=== PATIENT | female | born 1960 | race Caucasian/White ===

== ENCOUNTER 2016-05-11 12:37 | Inpatient (IN) | payer OTHER ==
[~2016-05-11] VITALS: Ht 149.9 cm; Wt 53.8 kg
[~2016-05-11 12:37] MED LIST: BENA20TA65 PO; DEXT15DR2 LEFT EYE; TYL500 PO
--- NOTE | 2016-05-11 14:58 | ERA ---
ER Documentation Chief Complaint Date/Time DATE: 05/11/16 TIME: 14:57 Chief Complaint Chest pain HPI The patient is a 55-year-old female, presenting to the ER because of intermittent left-sided chest pain radiating down to her left arm for the last 2 weeks, 10/11, worse with movement, denies similar symptoms previously. The pain is worse last night. She denies fever, chills, cough, neck pain, chest pain with exertion or vomiting or diaphoresis. He denies abdominal pain, vomiting, dysuria, diarrhea. She has not been taking her antihypertensive medication for more than 3 months. She does not smoke or drink Past medical history: Hypertension, gastritis Past surgical history: None ROS All systems reviewed and are negative except as per history of present illness. Medications Home Meds Discontinued Scripts Dextran/Hypromellose/Glycerin (Artificial Tears Drops) 15 Ml Drops, 2 DROP LEFT EYE Q6 for 10 Days, EA Prov:BRIGETTE RAMIREZ MD 12/02/14 Acetaminophen* (Tylenol*) 500 Mg Tab, 500 MG PO Q4H Y for PAIN, #20 TAB Prov:BRIGETTE RAMIREZ MD 12/02/14 Benazepril Hcl* (Lotensin*) 20 Mg Tablet, 20 MG PO DAILY, #30 TAB Prov:BRIGETTE RAMIREZ MD 12/02/14 Allergies Allergies: Coded Allergies: No Known Allergy (Unverified , 05/11/16) PMhx/Soc History of Surgery: No Anesthesia Reaction: No Hx Neurological Disorder: No Hx Respiratory Disorders: No Hx Cardiac Disorders: Yes (HTN) Hx Psychiatric Problems: No Hx Miscellaneous Medical Probl: No Hx Alcohol Use: No Hx Substance Use: No Hx Tobacco Use: No Physical Exam Vitals Vital Signs Date Time Temp Pulse Resp B/P Pulse Ox O2 Delivery O2 Flow Rate FiO2 05/11/16 18:27 98.1 57 16 129/83 100 Room Air 05/11/16 17:00 59 16 128/74 100 05/11/16 15:00 98.1 71 20 147/93 100 05/11/16 12:43 98.6 69 20 160/84 100 Physical Exam Const: No acute distress. Head: Atraumatic. Eyes: Normal Conjunctiva. ENT: Normal External Ears, Nose and Mouth. Neck: Full range of motion. No meningismus. Resp: Clear to auscultation bilaterally. Cardio: Regular rate and rhythm, no murmurs. Abd: Soft, non distended, normal bowel sounds, non tender. Skin: No petechiae or rashes. Back: No midline or flank tenderness. Ext: No cyanosis, or edema. Neur: Awake and alert. No focal deficit Psych: Normal Mood and Affect. Result Diagram: 05/11/16 1540 05/11/16 1540 Results 24 hrs Laboratory Tests Test 05/11/16 15:40 05/11/16 16:40 Activated Partial Thromboplast Time 30.7Sec Alanine Aminotransferase (ALT/SGPT) 36IU/L Albumin 4.3g/dl Albumin/Globulin Ratio 1.26 Alkaline Phosphatase 93IU/L Anion Gap 16 Aspartate Amino Transf (AST/SGOT) 36IU/L Basophils # 0.010^3/ul Basophils % 0.4% Blood Urea Nitrogen 13mg/dl Calcium Level 9.4mg/dl Carbon Dioxide Level 29mmol/L Chloride Level 101mmol/L Creatinine 0.69mg/dl Direct Bilirubin 0.00mg/dl Eosinophils # 0.010^3/ul Eosinophils % 0.5% Globulin 3.40g/dl Glucose Level 112mg/dl Hematocrit 41.2% Hemoglobin 13.8g/dl INR International Normalized Ratio 0.98 Indirect Bilirubin 0.4mg/dl Lipase 94U/L Lymphocytes # 1.910^3/ul Lymphocytes % 34.3% Mean Corpuscular Hemoglobin 29.1pg Mean Corpuscular Hemoglobin Concent 33.5g/dl Mean Corpuscular Volume 86.9fl Mean Platelet Volume 9.6fl Monocytes # 0.410^3/ul Monocytes % 6.7% Neutrophils # 3.210^3/ul Neutrophils % 58.1% Nucleated Red Blood Cells # 0.010^3/ul Nucleated Red Blood Cells % 0.0/100WBC Platelet Count 32981^3/UL Potassium Level 3.7mmol/L Prothrombin Time 13.0Sec Prothrombin Time Ratio 1.0 Red Blood Count 4.7410^6/ul Red Cell Distribution Width 14.1% Sodium Level 142mmol/L Total Bilirubin 0.4mg/dl Total Protein 7.7g/dl Troponin I < 0.012ng/ml White Blood Count 5.510^3/ul Urine Bilirubin NEGATIVE Urine Clarity CLEAR Urine Color LT. YELLOW Urine Glucose NEGATIVE% Urine Hemoglobin TRACE Urine Ketones NEGATIVE Urine Leukocyte Esterase NEGATIVE Urine Microscopic RBC 0-2/HPF Urine Microscopic WBC 0-2/HPF Urine Nitrite NEGATIVE Urine Specific [place] <=1.005 Urine Squamous Epithelial Cells FEW Urine Total Protein NEGATIVE Urine Urobilinogen 0.2 E.U./dL Urine pH 7.0 Current Medications Medications (Trade) Dose Ordered Sig/Caitlin Route PRN Reason Start Time Stop Time Status Last Admin Dose Admin Ketorolac Tromethamine (Toradol) 30 mg ONCE STAT IV 05/11/16 15:05 05/11/16 15:07 DC 05/11/16 15:25 Aspirin (Aspirin) 325 mg ONCE ONCE PO 05/11/16 17:30 05/11/16 17:31 DC 05/11/16 17:28 Nitroglycerin (Nitroglycerin 2% Oint) 1 inch ONCE ONCE TD 05/11/16 17:30 05/11/16 17:31 DC 05/11/16 17:29 Procedures/[place] [id number] Radiology Main Line: [phone] DIAGNOSTIC IMAGING REPORT Patient: POP DUDLEY : 1960 Age: 55 Sex: F MR #: [id number] DOS: 05/11/16 1505 Ordering MD: TYSON MAR MD Location: E/R Room/Bed: PROCEDURE: XR Chest. CLINICAL INDICATION: Abdominal pain. TECHNIQUE: Single frontal view of the chest was obtained COMPARISON: No. FINDINGS: The soft tissues are normal. The bony elements are normal. The heart, left side aorta, cardiomediastinal silhouette, pulmonary vasculature and hilar structures are normal. The lungs are clear. The costophrenic angles are normal. Monitoring electrodes are draped across the chest. The right diaphragm is elevated. IMPRESSION: 1. No evidence of active cardiopulmonary disease. 2. No evidence of pneumoperitoneum. 3. Elevation of the right diaphragm. RPTAT:AAJJ Physician Kevin Date Time Electronically viewed and signed by Javier Mccloud Physician on 05/11/2016 15:24 JM/ CC: TYSON MAR MD EKG: Read by emergency physician Rate/Rhythm: Normal Sinus Rhythm 62 beats per min QRS, ST, T-waves: No ST elevation, no T wave inversion, shortened OK interval Impression: Abnormal EKG MEDICAL MAKING DECISION: The patient is a 55-year-old female, presenting with acute chest pain, concerning for ACS. She was treated with aspirin 325 mg p.o. , 1 inch of nitroglycerin ointment and Toradol 30 mg IV for pain with good response. The differential diagnoses considered include but are not limited to acute coronary syndrome, acute myocardial infarction, pericarditis, pulmonary embolism, aortic dissection, pneumonia, pleural effusion, pneumothorax, GERD, chest wall pain. Departure Diagnosis: Primary Impression: Chest pain Condition: Stable Comments I discussed the findings with the patient. I discussed the patient with his physician Dr. Camejo who was made aware of the lab, the treatment, the patient condition. The patient is admitted to telemetry TYSON MAR MD May 11, 2016 14:58
[2016-05-11] MEDS ORDERED: KETOROLAC 30 MG INJ IV STA (15:05)
--- NOTE | 2016-05-11 15:25 | RADRPT ---
PROCEDURE: XR Chest. CLINICAL INDICATION: Abdominal pain. TECHNIQUE: Single frontal view of the chest was obtained COMPARISON: No. FINDINGS: The soft tissues are normal. The bony elements are normal. The heart, left side aorta, cardiomedias tinal silhouette, pulmonary vasculature and hilar structures are normal. The lungs are clear. The co stophrenic angles are normal. Monitoring electrodes are draped across the chest. The right diaphrag m is elevated. IMPRESSION: 1. No evidence of active cardiopulmonary disease. 2. No evidence of pneumoperitoneum. 3. Elevation of the right diaphragm. RPTAT:AAJJ Physician Kevin Date Time Electronically viewed and signed by Javier Mccloud Physician on 05/11/2016 15:24 /
[2016-05-11 16:01] LABS: BASOPHILS % 0.4 % (0.0-2.0); EOSINOPHILS % 0.5 % (0.0-7.0); HEMATOCRIT 41.2 % (37.0-47.0); HEMOGLOBIN 13.8 g/dl (12.0-16.0); LYMPHOCYTES # 1.9 10^3/ul (0.8-2.9); LYMPHOCYTES % 34.3 % (15.0-51.0); MEAN CORPUSCULAR HEMOGLOBIN 29.1 pg (29.0-33.0); MEAN CORPUSCULAR HGB CONC 33.5 g/dl (32.0-37.0); MEAN CORPUSCULAR VOLUME 86.9 fl (82.0-101.0); MEAN PLATELET VOLUME 9.6 fl (7.4-10.4); MONOCYTE # 0.4 10^3/ul (0.3-0.9); MONOCYTES % 6.7 % (0.0-11.0); NEUTROPHIL # 3.2 10^3/ul (1.6-7.5); NEUTROPHILS % 58.1 % (39.0-77.0); PLATELET COUNT 228 10^3/UL (140-440); RED BLOOD COUNT 4.74 10^6/ul (4.20-5.40); RED CELL DISTRIBUTION WIDTH 14.1 % (11.5-14.5); UNCORRECTED WBC 5.5 10^3/ul (4.8-10.8); WHITE BLOOD COUNT 5.5 10^3/ul (4.8-10.8)
[2016-05-11 16:03] LABS: CONDITION 1
[2016-05-11 16:13] LABS: INR 0.98
[2016-05-11 16:14] LABS: PARTIAL THROMBOPLASTIN TIME 30.7 Sec (25.0-35.0)
[2016-05-11 16:17] LABS: ALBUMIN 4.3 g/dl (3.3-4.9); CHLORIDE 101 mmol/L (97-110)
[2016-05-11 16:18] LABS: POTASSIUM 3.7 mmol/L (3.5-5.1); SODIUM 142 mmol/L (135-144)
[2016-05-11 16:20] LABS: ALBUMIN/GLOBULIN RATIO 1.26; ALKALINE PHOSPHATASE 93 IU/L (42-121); ANION GAP 16 (8-16); ASPARTATE AMINO TRANSFERASE 36 IU/L (15-46); BILIRUBIN,INDIRECT 0.4 mg/dl (0-1.1); BILIRUBIN,TOTAL 0.4 mg/dl (0.2-1.3); BLOOD UREA NITROGEN 13 mg/dl (7-20); CARBON DIOXIDE 29 mmol/L (21-31); CREATININE 0.69 mg/dl (0.44-1.00); TOTAL PROTEIN 7.7 g/dl (6.1-8.1)
[2016-05-11 16:21] LABS: ALANINE AMINOTRANSFERASE 36 IU/L (13-69); CALCIUM 9.4 mg/dl (8.4-10.2); GLUCOSE 112 mg/dl (70-220)
[2016-05-11 16:42] LABS: TROPONIN-I < 0.012 ng/ml (0.00-0.12)
[2016-05-11 16:48] LABS: ADD UMIC YES; URINE BILIRUBIN (Dip) NEGATIVE (NEGATIVE); URINE BLOOD (Dip) TRACE (NEGATIVE); URINE COLOR LT. YELLOW (YELLOW); URINE GLUCOSE (Dip) NEGATIVE (NEGATIVE); URINE KETONES (Dip) NEGATIVE (NEGATIVE); URINE LEUKOCYTE ESTERASE (Dip) NEGATIVE (NEGATIVE); URINE NITRITE (Dip) NEGATIVE (NEGATIVE); URINE TOTAL PROTEIN (Dip) NEGATIVE (NEGATIVE); URINE UROBILINOGEN (Dip) 0.2 E.U./dL (0.1-1.0)
[2016-05-11 17:22] LABS: SQUAMOUS EPITHELIAL CELL,UR FEW; URINE RBCS 0-2 /HPF (0)
[2016-05-11] MEDS ORDERED: ASPIRIN 325 MG TAB PO ONE (17:30)
[2016-05-11] MEDS ORDERED: NITROGLYCERIN 2% 1 GM OINT PKT TD ONE (17:30)
[2016-05-11 21:32] VITALS: TEMP 98.1
[2016-05-11 21:53] VITALS: PULSE 75
[2016-05-11 22:00] VITALS: BP 119/73; PULSE 71; RESP 20; Ht 149.9 cm; Wt 53.8 kg
[2016-05-11] MEDS ORDERED: hydrALAzine 20 MG INJ IV PRN (23:00)
[2016-05-11] MEDS ORDERED: NITROGLYCERIN (SL) 0.4 MG TAB SL PRN (23:00)
[2016-05-11] MEDS ORDERED: ONDANSETRON 4 MG INJ IV PRN (23:00)
[2016-05-11] MEDS ORDERED: ZOLPIDEM 5 MG TAB PO PRN (23:00)
[2016-05-11] MEDS ORDERED: HYDROCODONE/APAP (5/325) TAB PO PRN (23:00)
[2016-05-11] MEDS ORDERED: ACETAMINOPHEN 325 MG TAB PO PRN (23:00)
[2016-05-11] MEDS ORDERED: ENOXAPARIN 40 MG/0.4 ML SYG SC SCH (23:01)
[2016-05-11] MEDS: ASPIRIN 325 MG TAB PO SCH (23:25)
[2016-05-12] VITALS (13 sets, daily range): BP systolic 108–126; BP diastolic 59–82; PULSE 58–83; RESP 16–20
[2016-05-12 08:49] LABS: CHOL/HDL RATIO 2.7 RATIO
[2016-05-12] MEDS: ENOXAPARIN 40 MG/0.4 ML SYG SC SCH (09:00)
[2016-05-12] MEDS: ASPIRIN 325 MG TAB PO SCH (09:19)
[2016-05-12] MEDS ORDERED: ALBUTEROL/IPRATROPIUM (NEB) 3 ML AMP HHN PRN (11:00)
--- NOTE | 2016-05-12 12:14 | HP ---
DATE OF ADMISSION: 05/11/2016 CHIEF COMPLAINT: Chest pain. HISTORY OF PRESENT ILLNESS: The patient is a 55-year-old very pleasant female who presente d to the emergency room for complaints of intermittent left-sided chest pain radiating down to her a rm for the last 2 weeks. The pain gets significantly worse last night and patient came to the emerg ency room. The patient denied any fever, chills, cough. Denies abdominal pain, denies nausea, vomi ting, diarrhea. Denies leg swelling. The patient had a history of hypertension and was taking marissa zepril. In the emergency room, the patient underwent a 12-lead EKG which revealed sinus rhythm with no ST segment elevation or depression noted. The patient also underwent a chest x-ray which reveale d no evidence of active cardiopulmonary disease, no evidence of pneumoperitoneum, elevation of the r ight diaphragm. The patient was given aspirin, nitroglycerin and Toradol with good response and adm itted for further evaluation and management to telemetry floor. PAST MEDICAL HISTORY: Positive for hypertension. Positive for asthma. Patient uses a rescue inhal er p.r.n. The patient also has a history of gastritis was taking Prevacid; however, stopped it per [facility] physician recommendations. The patient also stated that she checked her cholesterol in January 2016, which was within normal limits. Patient goes to [facility] for primary care. PAST SURGICAL HISTORY: Patient denies having any surgeries. FAMILY HISTORY: Patient's father of a heart attack and cardiac problems at the age of 92, had a heart attack at the age of 80. The patient's mother is still alive and has a history of arthritis . SOCIAL HISTORY: Patient lives at home with her family. The patient denies any tobacco use, denies any illicit drug use, denies any alcohol use. ALLERGIES: NO KNOWN ALLERGIES. HOME MEDICATIONS: 1. Benazepril. 2. Rescue inhaler. REVIEW OF SYSTEMS: A 12-point review of systems is negative unless what mentioned in the HPI. PHYSICAL ASSESSMENT: GENERAL: Well-developed, well-nourished female currently is awake, alert, in no acute distress. VITAL SIGNS: Temperature is 97.8, pulse is 66, blood pressure is 126/77, respiratory rate 18, oxyge n saturation 96% on room air. HEENT: Head is atraumatic, normocephalic. Pupils equal, round, reactive to light and accommodation . Oral mucosa is pink and moist. NECK: Supple, no cervical lymphadenopathy, no thyromegaly. CHEST: Lungs clear bilaterally. There is no rhonchi, wheezes, rales noted. CARDIOVASCULAR: Normal S1, S2. No murmurs, gallops, clicks, rubs noted. ABDOMEN: Protuberant, soft, nondistended, nontender. Bowel sounds present. There is no guarding, no rebound tenderness. EXTREMITIES: There is no edema, clubbing, cyanosis. Pulses equal bilaterally 2+. SKIN: There is no rash, petechiae noted. NEUROLOGIC: Patient is awake, alert and oriented x4. No focal deficits noted. Motor strength 5/5 in all extremities. Cranial nerves II through XII are intact. LABORATORY DATA: On admission, CBC: White blood cells 5.5, hemoglobin 13.8, hematocrit 41.2, plate lets 228. Chemistry: Sodium is 142, potassium 3.7, chloride 101, carbon dioxide 29, anion gap 16, BUN 15, creatinine 0.69, glucose 112. AST 36, ALT 36, alkaline phosphatase 93, troponin less than 0 .012. ASSESSMENT AND PLAN: 1. Chest pain, rule out acute coronary syndrome. I am going to continue the patient on aspirin, ob tain cardiac enzymes q.8h. x3. A 2D echocardiogram. Dr. Bullard is asked to see patient in cardiol ogy consultation. Continue nitroglycerin p.r.n. for chest pain. Obtain 12-lead EKG. 2. Hypertension by history. Continue to monitor blood pressure on telemetry floor. 3. History of asthma. I am going to continue DuoNeb p.r.n. for shortness of breath. I will start patient on Protonix for peptic ulcer disease prophylaxis and Lovenox for deep venous thrombosis prop hylaxis. Further recommendations based on clinical course. Plan of care discussed with Dr. Florencia reddy Dictated By: JORGE LUIS VASQUEZ MACHINE APPLICATOR CEMENTER for LOY JUDGE MD, SR/NTS Conf#: [id number] DID#: [id number]
[2016-05-12] MEDS: PANTOPRAZOLE (EC) 40 MG TAB PO SCH ×2 (12:56→18:10)
--- NOTE | 2016-05-12 15:00 | CONS ---
DATE OF ADMISSION: 05/11/2016 DATE OF CONSULTATION: 05/12/2016 REASON FOR CONSULTATION: Chest pain, assess for acute coronary syndrome. REQUESTING PHYSICIAN: Owen Camejo. HISTORY OF PRESENT [id number]: Ms. Cardona is a 55-year-old female with history of hypertension and asthma who presented with 2 to 3 days of increasing substernal chest pain described as a pressure-like sensation. The patient states chest pain has been worse at night when at rest, described without radiation to arm or jaw, or associated shortness of breath. The patient states that the pain lasted throughout the evening on Tuesday. Upon arrival in the emergency department, temperature 98.6, blood pressure 160/84, pulse 69, respirations 20, saturating 100%. Patient's labs were notable for a negative UA , sodium 142, potassium 3.7, creatinine 0.69, BUN 13. Troponin negative. INR 0.98. White blood cell count 5.5, hemoglobin 13.8, platelet count 228. The patient underwent a chest x-ray revealing no evidence of acute cardiopulmonary abnormalities. The patient's electrocardiogram revealed sinus bradycardia, rate of 54, normal axis, normal intervals, with isolated T-wave flattening in lateral leads 1 and L. Patient at this time denies ongoing chest pain. PAST MEDICAL HISTORY: As above in HPI. MEDICATIONS CURRENTLY IN THE HOSPITAL: 2. lovenox subQ daily. 3. Aspirin 325 mg daily. 4. Ambien p.r.n. 5. Tylenol p.r.n. 6. Zofran p.r.n. 7. [place] p.r.n. 8. Hydralazine p.r.n. ALLERGIES: NO KNOWN DRUG ALLERGIES. SOCIAL HISTORY: No tobacco, ETOH or illicit drug use. FAMILY HISTORY: No history of sudden cardiac or early CAD. REVIEW OF SYSTEMS: As above in HPI. CONSTITUTIONAL: No fevers, chills. PULMONARY: No shortness of breath. CARDIOVASCULAR: Positive chest pain. GASTROINTESTINAL: No vomiting. GENITOURINARY: No hematuria. MUSCULOSKELETAL: Degenerative joint disease. PSYCHIATRIC: No documented history of psychiatric disorder. NEUROLOGICAL: No documented history of CVA. PHYSICAL EXAMINATION: VITAL SIGNS: Temperature 97.4, blood pressure 122/82, pulse 74, saturating 97%. GENERAL: The patient is alert, awake, in no acute distress. NECK: JVP approximately 8 to 9 cm water. CHEST: Fair air movement throughout. HEART: Regular rate and rhythm. Normal S1, S2, I/ systolic murmur, nondisplaced PMI. ABDOMEN: Positive bowel sounds, soft. EXTREMITIES: No edema, 1+ pulses bilaterally, posterior tibial. LABORATORIES: As above in HPI with most recently from today, troponins negative x2, LDL of 83. IMAGING STUDIES: As above in HPI. No further imaging studies for my review at this time. IMPRESSION: 1. Chest pain, assess for acute coronary syndrome. 2. Abnormal electrocardiogram, assess for acute coronary syndrome. 3. Hypertension, labile, currently under reasonable control. 4. Bradycardia, currently improved. RECOMMENDATIONS: 1. At this time, would maintain the patient on telemetry monitoring to follow rhythm and rate control closely. 2. Continue the patient's current aspirin for prophylaxis against cardiovascular events and will give patient sublingual nitroglycerin for recurrent episodes of chest pain. 3. Will continue to follow the patient's blood pressure closely off of antihypertensives at this time. 4. Check a TSH to ensure that subclinical hypothyroidism is not contributing to any bouts of bradycardia. 5. We will follow up the patient's 2D echo for assessment of ejection fraction , wall motion and any major valve abnormalities and if the patient does rule out for myocardial infarction, I believe this patient would benefit from further risk stratification with inpatient stress test to be scheduled to take place first thing in the morning. Thank you for allowing me to take part in the care of this patient. I will continue to follow her very closely with you with further recommendations to be made as the patient progresses through her inpatient hospital clinical course. Dictated By: JOSÉ CORADO/KRISTEN Conf#: [id number] DID#: [id number] CC: OWEN CAMEJO MD;*EndCC* MTDD
--- NOTE | 2016-05-12 15:20 | RADRPT ---
Echocardiogram Report Patient Name: POP DUDLEY Gender: Female Date: 1960 Study Date: 12-May-2016 Agile Developer: Delilah Novoa [facility] Location: 5554 Ref. Physician: LOY JUDGE Quality: Good Procedures: Transthoracic echocardiogram with complete 2D, M-Mode, and doppler examination. Indications: Chest Pain. 2D/M Mode Doppler Measurement Value Normal Ranges Measurement Value Normal Ranges LVIDd 2D 4.5 3.5 - 5.6 cm AV Peak Carlos 1.1 m/sec LVIDs 2D 3.2 2.1 - 4.1 cm AV Peak PG 4.7 mmHg LVPWd 2D 0.8 0.6 - 1.1 cm LVOT Peak Carlos 0.8 m/sec IVSd 2D 0.7 0.6 - 1.1 cm LVOT Peak PG 2.8 mmHg AoR Diam 2D 2.5 2.0 - 3.7 cm MV E Peak Carlos 0.4 m/sec EDV 2D 92.4 cm3 MV A Peak Carlos 0.6 m/sec ESV 2D 33.2 cm3 MV E/A 0.7 LA Dimen 2D 2.4 2.3 - 4.0 cm MV Decel Time 176 msec MV Decel [place] 2 MV E/A 0.7 Findings Left Ventricle: Normal left ventricular systolic function. Normal left ventricular cavity size. Normal left ventricular wall thickness. Ejection fraction is visually estimated at 55 %. Tissue Doppler/Mitral Doppler indices are consistent with impaired relaxation (Stage I diastolic dysfunction). Right Ventricle: Normal right ventricular size. Normal right ventricular systolic function. Left Atrium: The left atrium is normal in size. Right Atrium: The right atrium is normal in size. Mitral Valve: Mitral valve leaflets appear mildly thickened. Mild mitral annular calcification. Trace mitral regurgitation. Aortic Valve: Normal appearance of the aortic valve. No significant aortic stenosis or insufficiency. Tricuspid Valve: Normal appearance of the tricuspid valve. Unable to obtain RVSP due to minimal presence of tricuspid regurgitation. Pericardium: Normal pericardium with no significant pericardial effusion. Aorta: Normal aortic root. IVC: Normal size and normal respiratory collapse consistent with normal right atrial pressure. Conclusions 1.Normal left ventricular systolic function. Normal left ventricular cavity size. Normal left ventricular wall thickness. Ejection fraction is visually estimated at 55 %. Tissue Doppler/Mitral Doppler indices are consistent with impaired relaxation (Stage I diastolic dysfunction). 2.Mitral valve leaflets appear mildly thickened. Mild mitral annular calcification. Trace mitral regurgitation. 3.Normal appearance of the tricuspid valve. Unable to obtain RVSP due to minimal presence of tricuspid regurgitation. Electronically Signed By: Miguel A Bullard 12-May-2016 15:20:28 -0800 Patient Name: POP DUDLEY Study Date: 12-May-2016 [id number]
[2016-05-13] VITALS (10 sets, daily range): BP systolic 101–124; BP diastolic 59–74; PULSE 55–69; RESP 16–20
[2016-05-13] MEDS: PANTOPRAZOLE (EC) 40 MG TAB PO SCH ×2 (05:13→17:33)
[2016-05-13 07:01] LABS: BASOPHILS % 0.6 % (0.0-2.0); EOSINOPHILS # 0.1 10^3/ul (0.0-0.5); EOSINOPHILS % 1.3 % (0.0-7.0); HEMATOCRIT 38.6 % (37.0-47.0); LYMPHOCYTES # 1.6 10^3/ul (0.8-2.9); LYMPHOCYTES % 29.8 % (15.0-51.0); MEAN CORPUSCULAR HEMOGLOBIN 29.4 pg (29.0-33.0); MEAN CORPUSCULAR HGB CONC 33.7 g/dl (32.0-37.0); MEAN CORPUSCULAR VOLUME 87.1 fl (82.0-101.0); MEAN PLATELET VOLUME 9.6 fl (7.4-10.4); MONOCYTE # 0.5 10^3/ul (0.3-0.9); MONOCYTES % 8.9 % (0.0-11.0); NEUTROPHIL # 3.1 10^3/ul (1.6-7.5); NEUTROPHILS % 59.4 % (39.0-77.0); PLATELET COUNT 200 10^3/UL (140-440); RED BLOOD COUNT 4.43 10^6/ul (4.20-5.40); UNCORRECTED WBC 5.3 10^3/ul (4.8-10.8); WHITE BLOOD COUNT 5.3 10^3/ul (4.8-10.8)
[2016-05-13 07:17] LABS: CONDITION 1
[2016-05-13 07:55] LABS: CREATININE 0.77 mg/dl (0.44-1.00)
[2016-05-13 07:56] LABS: CALCIUM 9.1 mg/dl (8.4-10.2)
--- NOTE | 2016-05-13 08:19 | CONS ---
DATE OF ADMISSION: 05/11/2016 DATE OF CONSULTATION: 05/12/2016 CARDIOLOGY CONSULTATION REASON FOR CONSULTATION: Chest pain, assess for acute coronary syndrome. REQUESTING PHYSICIAN: Owen Camejo MD HISTORY OF PRESENT ILLNESS: Ms. Cardona is a 55-year-old female with a history of hypertension, ast hma, gastritis who initially presented with complaints of substernal chest pain ongoing for a few da ys prior to admit. The patient states the chest pain was worse at night and described it as a press ure-like sensation without radiation. The patient subsequently presented here to the emergency depa rtment where upon arrival, temperature 98.6, blood pressure elevated at 160/84, pulse 69, respirator y rate 20, saturating 100%. Patient's labs, white cell 5.5, hemoglobin 13.8, platelet count 228. S odium 142, potassium 3.7, creatinine 0.69, BUN 13. Troponin negative. LDL 83, HDL 58, lipase 94. INR 0.98. UA negative. The patient underwent a chest x-ray revealing no evidence Dictated By: JOSÉ CORADO/KRISTEN Conf#: [id number] DID#: [id number]
[2016-05-13] MEDS: ENOXAPARIN 40 MG/0.4 ML SYG SC SCH (09:00)
[2016-05-13] MEDS ORDERED: INFLUENZA VIRUS VACCINE 0.5 ML (DISPENSING) IM* ONE (09:00)
[2016-05-13] MEDS: ASPIRIN 325 MG TAB PO SCH (09:21)
--- NOTE | 2016-05-13 11:46 | RADRPT ---
Vent Rate: 54 bpm RR Interval: 0 msec [place] Interval: 144 msec QRS Duration: 86 msec QT Interval: 432 msec QTC Interval: 409 msec P-R-T [place]: 62 - 64 - 60 degrees Sinus bradycardia Otherwise normal ECG Electronically Signed By: Sheldon Ramos [id number]
--- NOTE | 2016-05-13 11:48 | RADRPT ---
Vent Rate: 59 bpm RR Interval: 0 msec [place] Interval: 146 msec QRS Duration: 80 msec QT Interval: 414 msec QTC Interval: 409 msec P-R-T [place]: 59 - 71 - 65 degrees Sinus bradycardia Otherwise normal ECG Electronically Signed By: Sheldon Ramos [id number]
[2016-05-13] MEDS ORDERED: REGADENOSON 0.4 MG/5 ML SYG ONE (12:03)
--- NOTE | 2016-05-13 12:35 | CONS ---
Date/Time of Note Date/Time of Note DATE: 05/13/16 TIME: 12:33 Assessment/Plan Assessment/Plan Chief Complaint/Hosp Course IMPRESSION: 1. Chest pain, assess for acute coronary syndrome.-negative troponin x 3/NL EF by echo this admit 2. Abnormal electrocardiogram, assess for acute coronary syndrome. 3. Hypertension, labile, currently under reasonable control. 4. Bradycardia, currently improved. Recc: -Tele -continue asa -Follow marginal BP closely -Lexiscan stress test today -PRN SL NTG for recurrent chest pain Problems: Consultation Date/Type/Reason Admit Date/Time May 11, 2016 at 21:47 Initial Consult Date 05/12/2016 Type of Consultation: Cardiology Reason for Consultation Chest pain Referring Provider: LOY JUDGE MD Exam/Review of Systems Vital Signs Vitals Vital Signs Date Time Temp Pulse Resp B/P Pulse Ox O2 Delivery O2 Flow Rate FiO2 05/13/16 11:45 98.2 66 20 110/74 97 05/11/16 22:00 Room Air Intake and Output 05/12/16 05/12/16 05/13/16 15:00 23:00 07:00 Intake Total 960 ml Balance 960 ml Exam Review of Systems: CONSTITUTIONAL: No fevers, chills. PULMONARY: No sob CARDIOVASCULAR:intermittent chest pain GASTROINTESTINAL: No nausea/vomiting. GENITOURINARY: No hematuria/dysuria. MUSCULOSKELETAL: No myagias/arthalgias. PSYCHIATRIC: The patient denies depression. NEUROLOGIC: No weakness Constitutional: alert, oriented Psych: no complaints Head: normocephalic ENMT: mucosa pink and moist Neck: jvd (8-9 cm water), supple Respiratory: clear to auscultation Cardiovascular: regular rate and rhythm Gastrointestinal: soft Musculoskeletal: muscle tone (normal) Extremities: edema (none) Neurological: other (No focal deficits) Results Result Diagram: 05/13/16 0608 05/13/16 0608 Results 24 hrs Laboratory Tests Test 05/13/16 06:08 Anion Gap 16 Basophils # 0.0 Basophils % 0.6 Blood Urea Nitrogen 19 Calcium Level 9.1 Carbon Dioxide Level 27 Chloride Level 104 Creatinine 0.77 Eosinophils # 0.1 Eosinophils % 1.3 Glucose Level 99 Hematocrit 38.6 Hemoglobin 13.0 Lymphocytes # 1.6 Lymphocytes % 29.8 Mean Corpuscular Hemoglobin 29.4 Mean Corpuscular Hemoglobin Concent 33.7 Mean Corpuscular Volume 87.1 Mean Platelet Volume 9.6 Monocytes # 0.5 Monocytes % 8.9 Neutrophils # 3.1 Neutrophils % 59.4 Nucleated Red Blood Cells # 0.0 Nucleated Red Blood Cells % 0.0 Platelet Count 200 Potassium Level 4.0 Red Blood Count 4.43 Red Cell Distribution Width 14.0 Sodium Level 143 Troponin I < 0.012 White Blood Count 5.3 Medications Medications Current Medications Aspirin (Aspirin) 325 mg DAILY PO Last administered on 05/13/16 09:21; Admin Dose 325 MG; Start 05/11/16 at 23:00 Nitroglycerin (Nitroglycerin (Sl Tab) 0.4 Mg) 1 tab Q5M PRN SL ANGINA; Start at 23:00 Zolpidem Tartrate (Ambien) 5 mg HS PRN PO INSOMNIA; Start 05/11/16 at 23:00 Acetaminophen (Tylenol Tab) 650 mg Q6H PRN PO PAIN AND OR ELEVATED TEMP; Start 05/11/16 at 23:00 Ondansetron HCl (Zofran Inj) 4 mg Q6H PRN IV NAUSEA AND/OR VOMITING; Start 05/11 at 23:00 Acetaminophen/ Hydrocodone Bitart ([place] (5/325)) 1 tab Q6H PRN PO PAIN LEVEL 7 -10 Last administered on 05/11/16 23:24; Admin Dose 1 TAB; Start 05/11/16 at 23: 00 Hydralazine HCl (Apresoline) 10 mg Q4H PRN IV ELEVATED SYSTOLIC BP; Start at 23:00 Enoxaparin Sodium (Lovenox) 40 mg DAILY SC ; Start 05/12/16 at 09:00 Pantoprazole (Protonix Tab) 40 mg BID@06,18 PO Last administered on 05/13/16 05 :13; Admin Dose 40 MG; Start 05/12/16 at 12:00 JOSÉ DICKINSON May 13, 2016 12:35
--- NOTE | 2016-05-13 13:03 | PN ---
Date/Time of Note Date/Time of Note DATE: 05/13/16 TIME: 12:59 Assessment/Plan VTE Prophylaxis VTE Prophylaxis Intervention: SCD's Lines/Catheters IV Catheter Type (from Nrs): Saline Lock Urinary Cath still in place: No Assessment/Plan Assessment/Plan 1. Chest pain, rule out acute coronary syndrome. I am going to continue the patient on aspirin, obtain cardiac enzymes q.8h. x3. A 2D echocardiogram. Dr. Bullard is asked to see patient in cardiology consultation. Continue nitroglycerin p.r.n. for chest pain. Obtain 12-lead EKG. 2. Hypertension by history. Continue to monitor blood pressure on telemetry floor. 3. History of asthma. I am going to continue DuoNeb p.r.n. for shortness of breath. Protonix for peptic ulcer disease prophylaxis and Lovenox for deep venous thrombosis prophylaxis. Further recommendations based on clinical course. Plan of care discussed with Dr. Camejo. Subjective 24 Hr Interval Summary Free Text/Dictation came back from [facility], no chest pain at present. dw staff. Exam/Review of Systems Vital Signs Vitals Vital Signs Date Time Temp Pulse Resp B/P Pulse Ox O2 Delivery O2 Flow Rate FiO2 05/13/16 11:45 98.2 66 20 110/74 97 05/11/16 22:00 Room Air Intake and Output 05/12/16 05/12/16 05/13/16 15:00 23:00 07:00 Intake Total 960 ml Balance 960 ml Exam Constitutional: alert, oriented, well developed Psych: nl mood/affect Eyes: EOMI, PERRL, nl sclera ENMT: nl external ears & nose Respiratory: clear to auscultation Cardiovascular: nl pulses Gastrointestinal: non-tender, soft Musculoskeletal: nl extremities to inspection Extremities: normal pulses Neurological: nl mental status Skin: nl turgor Lymph: nontender Results Result Diagram: 05/13/16 0608 05/13/16 0608 Results 24 hrs Laboratory Tests Test 05/13/16 06:08 Anion Gap 16 Basophils # 0.0 Basophils % 0.6 Blood Urea Nitrogen 19 Calcium Level 9.1 Carbon Dioxide Level 27 Chloride Level 104 Creatinine 0.77 Eosinophils # 0.1 Eosinophils % 1.3 Glucose Level 99 Hematocrit 38.6 Hemoglobin 13.0 Lymphocytes # 1.6 Lymphocytes % 29.8 Mean Corpuscular Hemoglobin 29.4 Mean Corpuscular Hemoglobin Concent 33.7 Mean Corpuscular Volume 87.1 Mean Platelet Volume 9.6 Monocytes # 0.5 Monocytes % 8.9 Neutrophils # 3.1 Neutrophils % 59.4 Nucleated Red Blood Cells # 0.0 Nucleated Red Blood Cells % 0.0 Platelet Count 200 Potassium Level 4.0 Red Blood Count 4.43 Red Cell Distribution Width 14.0 Sodium Level 143 Troponin I < 0.012 White Blood Count 5.3 Medications Medications Current Medications Aspirin (Aspirin) 325 mg DAILY PO Last administered on 05/13/16 09:21; Admin Dose 325 MG; Start 05/11/16 at 23:00 Nitroglycerin (Nitroglycerin (Sl Tab) 0.4 Mg) 1 tab Q5M PRN SL ANGINA; Start at 23:00 Zolpidem Tartrate (Ambien) 5 mg HS PRN PO INSOMNIA; Start 05/11/16 at 23:00 Acetaminophen (Tylenol Tab) 650 mg Q6H PRN PO PAIN AND OR ELEVATED TEMP; Start 05/11/16 at 23:00 Ondansetron HCl (Zofran Inj) 4 mg Q6H PRN IV NAUSEA AND/OR VOMITING; Start 05/11 at 23:00 Acetaminophen/ Hydrocodone Bitart ([place] (5/325)) 1 tab Q6H PRN PO PAIN LEVEL 7 -10 Last administered on 05/11/16 23:24; Admin Dose 1 TAB; Start 05/11/16 at 23: 00 Hydralazine HCl (Apresoline) 10 mg Q4H PRN IV ELEVATED SYSTOLIC BP; Start at 23:00 Enoxaparin Sodium (Lovenox) 40 mg DAILY SC ; Start 05/12/16 at 09:00 Pantoprazole (Protonix Tab) 40 mg BID@06,18 PO Last administered on 05/13/16 05 :13; Admin Dose 40 MG; Start 05/12/16 at 12:00 STEFANIE RAMÍREZ May 13, 2016 13:03
--- NOTE | 2016-05-13 14:35 | CONS ---
DATE OF ADMISSION: 05/11/2016 DATE OF CONSULTATION: 05/13/2016 LEXISCAN CARDIOLITE STRESS TEST ELECTROCARDIOGRAM PORTION TYPE OF PROCEDURE: Lexiscan Cardiolite stress test, electrocardiogram portion. INDICATION: Chest pain, assess for ischemia. BASELINE VITAL SIGNS AND ELECTROCARDIOGRAM: Pulse 63, blood pressure 124/67. Electrocardiogram rev eals normal sinus rhythm, rate of 63, normal axis, normal intervals, with isolated T-wave flattening in lead aVL. DESCRIPTION OF PROCEDURE: The patient underwent standard Lexiscan infusion protocol over 10 seconds followed by radiolabeled tracer. The patient's test was stopped due to completion of protocol. Latoya valadez achieved blood pressure during the test 124/71. Maximal heart rate during the test 105. ELECTROCARDIOGRAM FINDINGS: During Lexiscan infusion, the patient developed diffuse biphasic T-wave abnormalities which returned to normal during recovery. No documented PVCs. SYMPTOMS: The patient had complaints of mild shortness breath during stress test that resolved in r ecovery. No chest pain. IMPRESSION: 1. Lexiscan-induced ST-T-wave changes suggestive, but nondiagnostic for cardiac ischemia. 2. No complaints of chest pain during stress testing. Positive shortness of breath. 3. No documented premature ventricular contractions during stress testing. 4. Report of nuclear images to follow in separate dictation. Dictated By: JOSÉ CORADO/KRISTEN Conf#: [id number] DID#: [id number] CC: LOY JUDGE MD;*EndCC*
--- NOTE | 2016-05-13 15:28 | RADRPT ---
PROCEDURE: Lexiscan myocardial perfusion study CLINICAL INDICATION: 55 -year-old patient complaining of chest pain. TECHNIQUE: Lexiscan 0.4 mg intravenously separate acquisition gated myocardial perfusion SPECT usi ng Tc 99m Myoview 31.7 mCi intravenously at stress and Tc-99m Myoview, 9.8 mCi intravenously at rest was performed using the rest/stress sequence. Poststress Myoview SPECT images were obtained in the supine position. COMPARISON: No prior studies. FINDINGS: Perfusion images reveal a borderline small reversible perfusion abnormality in the inferior wall. Lexiscan post stress gated SPECT images demonstrate no wall motion abnormalities. IMPRESSION: 1. The type and distribution of the scintigraphic abnormalities are most consistent with a small francois rderline reversible perfusion abnormality in the inferior wall; soft tissue attenuation is not ruled out. 2. No wall motion abnormalities. 3. The left ventricle ejection fraction at stress is greater than 70%. A call report was made to Dr. Bullard at 03:26 p.m. on May 13, 2016. RPTAT: HH .Roopa Shaw MD, Date Time Electronically viewed and signed by .Roopa Shaw MD, on 05/13/2016 15:28 .L/
[2016-05-14] VITALS (9 sets, daily range): BP systolic 113–122; BP diastolic 53–69; PULSE 59–84; RESP 18–19
[2016-05-14] MEDS: PANTOPRAZOLE (EC) 40 MG TAB PO SCH (05:26)
[2016-05-14 08:06] LABS: ADD SCAN DIFF NO
[2016-05-14 08:08] LABS: BASOPHILS % 0.4 % (0.0-2.0); EOSINOPHILS # 0.1 10^3/ul (0.0-0.5); EOSINOPHILS % 1.1 % (0.0-7.0); HEMATOCRIT 39.1 % (37.0-47.0); HEMOGLOBIN 12.9 g/dl (12.0-16.0); LYMPHOCYTES # 0.9 10^3/ul (0.8-2.9); LYMPHOCYTES % 18.6 % (15.0-51.0); MEAN CORPUSCULAR HEMOGLOBIN 28.7 pg (29.0-33.0); MEAN CORPUSCULAR VOLUME 86.9 fl (82.0-101.0); MEAN PLATELET VOLUME 11.2 fl (7.4-10.4); MONOCYTE # 0.4 10^3/ul (0.3-0.9); MONOCYTES % 8.1 % (0.0-11.0); NEUTROPHIL # 3.4 10^3/ul (1.6-7.5); NEUTROPHILS % 71.6 % (39.0-77.0); PLATELET COUNT 227 10^3/UL (140-415); RED CELL DISTRIBUTION WIDTH 13.4 % (11.5-14.5); WHITE BLOOD COUNT 4.7 10^3/ul (4.8-10.8)
[2016-05-14 08:32] LABS: POTASSIUM 4.8 mmol/L (3.5-5.1)
[2016-05-14 08:35] LABS: CREATININE 0.7 mg/dl (0.44-1.00)
[2016-05-14 08:36] LABS: CALCIUM 9.2 mg/dl (8.4-10.2)
[2016-05-14] MEDS: ASPIRIN 325 MG TAB PO SCH (09:00)
[2016-05-14] MEDS: ENOXAPARIN 40 MG/0.4 ML SYG SC SCH (09:00)
--- NOTE | 2016-05-14 12:54 | PN ---
Date/Time of Note Date/Time of Note DATE: 05/14/16 TIME: 12:51 Assessment/Plan VTE Prophylaxis VTE Prophylaxis Intervention: SCD's Lines/Catheters IV Catheter Type (from [facility] Saline Lock Urinary Cath still in place: No Assessment/Plan Chief Complaint/Hosp Course ASSESSMENT AND PLAN: 1. Chest pain, rule out acute coronary syndrome. S/p stress test by Dr Bullard. 2. Hypertension by history. Continue to monitor blood pressure on telemetry floor. 3. History of asthma. I am going to continue DuoNeb p.r.n. for shortness of breath. Await for cardiology recs. Continue Protonix for peptic ulcer disease prophylaxis and Lovenox for deep venous thrombosis prophylaxis. Further recommendations based on clinical course. Plan of care discussed with Dr. Camejo. Problems: Exam/Review of Systems Vital Signs Vitals Vital Signs Date Time Temp Pulse Resp B/P Pulse Ox O2 Delivery O2 Flow Rate FiO2 05/14/16 12:10 84 05/14/16 11:53 98.5 18 122/69 98 05/11/16 22:00 Room Air Intake and Output 05/13/16 05/13/16 05/14/16 15:00 23:00 07:00 Intake Total 2240 ml 500 ml Balance 2240 ml 500 ml Results Result Diagram: 05/14/16 0710 05/14/16 0710 Results 24 hrs Laboratory Tests Test 05/14/16 07:10 Anion Gap 17 H Basophils # 0.0 Basophils % 0.4 Blood Urea Nitrogen 19 Calcium Level 9.2 Carbon Dioxide Level 28 Chloride Level 104 Creatinine 0.70 Eosinophils # 0.1 Eosinophils % 1.1 Glucose Level 97 Hematocrit 39.1 Hemoglobin 12.9 Lymphocytes # 0.9 Lymphocytes % 18.6 Mean Corpuscular Hemoglobin 28.7 L Mean Corpuscular Hemoglobin Concent 33.0 Mean Corpuscular Volume 86.9 Mean Platelet Volume 11.2 H Monocytes # 0.4 Monocytes % 8.1 Neutrophils # 3.4 Neutrophils % 71.6 Nucleated Red Blood Cells # 0.0 Nucleated Red Blood Cells % 0.0 Platelet Count 227 Potassium Level 4.8 Red Blood Count 4.50 Red Cell Distribution Width 13.4 Sodium Level 144 White Blood Count 4.7 L Medications Medications Current Medications Aspirin (Aspirin) 325 mg DAILY PO Last administered on 05/14/16 09:00; Admin Dose 325 MG; Start 05/11/16 at 23:00 Nitroglycerin (Nitroglycerin (Sl Tab) 0.4 Mg) 1 tab Q5M PRN SL ANGINA; Start at 23:00 Zolpidem Tartrate (Ambien) 5 mg HS PRN PO INSOMNIA; Start 05/11/16 at 23:00 Acetaminophen (Tylenol Tab) 650 mg Q6H PRN PO PAIN AND OR ELEVATED TEMP; Start 05/11/16 at 23:00 Ondansetron HCl (Zofran Inj) 4 mg Q6H PRN IV NAUSEA AND/OR VOMITING; Start 05/11 at 23:00 Acetaminophen/ Hydrocodone Bitart ([place] (5/325)) 1 tab Q6H PRN PO PAIN LEVEL 7 -10 Last administered on 05/11/16 23:24; Admin Dose 1 TAB; Start 05/11/16 at 23: 00 Hydralazine HCl (Apresoline) 10 mg Q4H PRN IV ELEVATED SYSTOLIC BP; Start at 23:00 Enoxaparin Sodium (Lovenox) 40 mg DAILY SC ; Start 05/12/16 at 09:00 Pantoprazole (Protonix Tab) 40 mg BID@06,18 PO Last administered on 05/14/16 05:26; Admin Dose 40 MG; Start 05/12/16 at 12:00 JORGE LUIS VASQUEZ May 14, 2016 12:54
--- NOTE | 2016-05-14 13:45 | CONS ---
Date/Time of Note Date/Time of Note DATE: 05/14/16 TIME: 13:42 Assessment/Plan Assessment/Plan Chief Complaint/Hosp Course IMPRESSION: 1. Chest pain, assess for acute coronary syndrome.-negative troponin x 3/NL EF by echo this admit. Lexsican with questionable partially reversible inferior defect 2. Abnormal electrocardiogram, assess for acute coronary syndrome. 3. Hypertension, labile, currently under reasonable control. 4. Bradycardia, currently improved. Recc: -Tele -ok for d/c from cardiac standpoint as lng as remains asymptomatic. -continue asa -PRN SL NTG for recurrent chest pain -Give my contact information for outpatient f/u appt 2 weeks. LHC for recurrent concerning sx. Problems: Consultation Date/Type/Reason Admit Date/Time May 11, 2016 at 21:47 Initial Consult Date 05/12/2016 Type of Consultation: Cardiology Reason for Consultation chest pain Referring Provider: LOY JUDGE MD Exam/Review of Systems Vital Signs Vitals Vital Signs Date Time Temp Pulse Resp B/P Pulse Ox O2 Delivery O2 Flow Rate FiO2 05/14/16 12:10 84 05/14/16 11:53 98.5 18 122/69 98 05/11/16 22:00 Room Air Intake and Output 05/13/16 05/13/16 05/14/16 15:00 23:00 07:00 Intake Total 2240 ml 500 ml Balance 2240 ml 500 ml Exam Review of Systems: CONSTITUTIONAL: No fevers, chills. PULMONARY: No sob CARDIOVASCULAR: No chest pain/palpitations GASTROINTESTINAL: No nausea/vomiting. GENITOURINARY: No hematuria/dysuria. MUSCULOSKELETAL: No myagias/arthalgias. PSYCHIATRIC: The patient denies depression. NEUROLOGIC: No weakness Constitutional: alert, oriented Psych: no complaints Head: normocephalic ENMT: mucosa pink and moist Neck: jvd (9 cm water), supple Respiratory: clear to auscultation Cardiovascular: regular rate and rhythm Gastrointestinal: non-tender, soft Musculoskeletal: muscle tone (normal) Extremities: edema (none) Neurological: other (NO focal deficits) Results Result Diagram: 05/14/16 0710 05/14/16 0710 Results 24 hrs Laboratory Tests Test 05/14/16 07:10 Anion Gap 17 H Basophils # 0.0 Basophils % 0.4 Blood Urea Nitrogen 19 Calcium Level 9.2 Carbon Dioxide Level 28 Chloride Level 104 Creatinine 0.70 Eosinophils # 0.1 Eosinophils % 1.1 Glucose Level 97 Hematocrit 39.1 Hemoglobin 12.9 Lymphocytes # 0.9 Lymphocytes % 18.6 Mean Corpuscular Hemoglobin 28.7 L Mean Corpuscular Hemoglobin Concent 33.0 Mean Corpuscular Volume 86.9 Mean Platelet Volume 11.2 H Monocytes # 0.4 Monocytes % 8.1 Neutrophils # 3.4 Neutrophils % 71.6 Nucleated Red Blood Cells # 0.0 Nucleated Red Blood Cells % 0.0 Platelet Count 227 Potassium Level 4.8 Red Blood Count 4.50 Red Cell Distribution Width 13.4 Sodium Level 144 White Blood Count 4.7 L Medications Medications Current Medications Aspirin (Aspirin) 325 mg DAILY PO Last administered on 05/14/16 09:00; Admin Dose 325 MG; Start 05/11/16 at 23:00 Nitroglycerin (Nitroglycerin (Sl Tab) 0.4 Mg) 1 tab Q5M PRN SL ANGINA; Start at 23:00 Zolpidem Tartrate (Ambien) 5 mg HS PRN PO INSOMNIA; Start 05/11/16 at 23:00 Acetaminophen (Tylenol Tab) 650 mg Q6H PRN PO PAIN AND OR ELEVATED TEMP; Start 05/11/16 at 23:00 Ondansetron HCl (Zofran Inj) 4 mg Q6H PRN IV NAUSEA AND/OR VOMITING; Start 05/11 at 23:00 Acetaminophen/ Hydrocodone Bitart ([place] (5/325)) 1 tab Q6H PRN PO PAIN LEVEL 7 -10 Last administered on 05/11/16 23:24; Admin Dose 1 TAB; Start 05/11/16 at 23: 00 Hydralazine HCl (Apresoline) 10 mg Q4H PRN IV ELEVATED SYSTOLIC BP; Start at 23:00 Enoxaparin Sodium (Lovenox) 40 mg DAILY SC ; Start 05/12/16 at 09:00 Pantoprazole (Protonix Tab) 40 mg BID@06,18 PO Last administered on 05/14/16 05:26; Admin Dose 40 MG; Start 05/12/16 at 12:00 JOSÉ DICKINSON May 14, 2016 13:45
--- NOTE | 2016-05-17 06:14 | DS ---
DATE OF ADMISSION: 05/11/2016 DATE OF DISCHARGE: 05/14/2016 FINAL DIAGNOSES: 1. Chest pain, acute coronary syndrome ruled out. 2. Hypertension. 3. History of asthma. BRIEF HISTORY: The patient is a 55-year-old female who presented to the emergency room wit h complaints of intermittent left-sided chest pain radiating to her arm for the last 2 weeks. The p ain got significantly worse last night and the patient decided to come to the emergency room. The p atient denies any fever or chills. The patient was given aspirin and nitroglycerin, Toradol with go od response, and the patient was admitted for further evaluation and management to telemetry floor. HOSPITAL COURSE: The patient was evaluated by Dr. Bullard in Cardiology consultation. The patient' s cardiac enzymes, troponin was negative x4. The patient also underwent stress test with questionab le partially reversible inferior defect. The patient also underwent 2-D echo which revealed normal left ventricular systolic function with ejection fraction of 55% and stage I diastolic dysfunction. The patient did not experience any chest pain during admission, was monitored closely on telemetry floor. Blood pressure was well controlled and stable. The patient was cleared for Cardiology for d ischarge and the patient was discharged home by Dr. Camejo. Discharge instructions were given to the patient by Dr. Camejo and instructions were given to the patient by Dr. Camejo. Dictated By: JORGE LUIS VASQUEZ FRAME CHANGER for LOY CAMEJO MD SR/NTS Conf#: [id number] DID#: [id number]
== END 2016-05-14 16:42 | disposition home or self-care (01) | DRG 313 ==
LOC: E/R 12:37 → MS4 21:42
PROVIDERS: ADMIT Internal Medicine; ATTEND Internal Medicine
DX: R07.9 Chest pain, unspecified (principal); I10 Essential (primary) hypertension; R00.1 Bradycardia, unspecified
CPT/HCPCS: 36415; 71010; 78452; 80048; 80053; 80061; 81001; 81003; 83690; 84484; 85025; 85610; 85730; 90686; 93005; 93017; 93306; 96374; A9500; A9505; J1650; J1885; J2785